=== PATIENT | male | born 1955 | race Two or more races ===

== ENCOUNTER → 2024-09-06 | Outpatient (CLI) | payer MEDICARE, SELFPAY ==
--- NOTE | 2024-09-06 12:30 | XR_ITS ---
Examination: PA lateral chest 2 views TECHNIQUE: Upright PA lateral chest 2 views Exam date and time: September 06, 2024 1306 hours INDICATIONS: Coughing wheezing beginning 2 days ago. FINDINGS: Mild bilateral perihilar pneumonia Normal heart size Moderate osteopenia IMPRESSION: Mild bilateral perihilar pneumonia
== END | disposition home or self-care (01) ==
PROVIDERS: PCP Physician Assistant; Referring Provider Physician Assistant; Visit Provider Physician Assistant
DX: J18.9 Pneumonia, unspecified organism (principal)
CPT/HCPCS: 71046